=== PATIENT | female | born 1990 | race Caucasian/White ===

== ENCOUNTER 2017-07-30 02:20 | Emergency (ER) | payer MEDICAID, OTHER ==
[~2017-07-30] VITALS: Ht 160 cm; Wt 67.9 kg
[~2017-07-30 02:20] MED LIST: ACET500C5 PO
[2017-07-30 02:27] VITALS: Ht 160 cm; Wt 67.9 kg
[2017-07-30] MEDS ORDERED: AZIT250T94 PO (06:34)
[2017-07-30] MEDS ORDERED: CETI10CA PO (06:35)
[2017-07-30] MEDS ORDERED: ALBU8.5H3 INH (06:35)
--- NOTE | 2017-07-30 06:43 | ERD ---
ER Documentation Chief Complaint Chief Complaint cough x 2 weeks, sob today HPI This is a 27-year-old female who presents the emergency department today complaining of a cough for the past 2 weeks. Patient states she does smoke cigarettes. States that sometimes she feels some shortness of breath. Denies any currently. States that her cough is worse when she is at home around her mom's pets. Denies any fevers or chills. ROS All systems reviewed and are negative except as per history of present illness. Medications Home Meds Active Scripts Cetirizine Hcl* (Zyrtec*) 10 Mg Capsule, 10 MG PO DAILY, #14 TAB.CHEW Prov:FARNAZ VAUGHN PA-C 07/30/17 Albuterol Sulfate* (Proair HFA*) 8.5 Gm Hfa.aer.ad, 2 PUFF INH Q4, #1 INHALER Prov:FARNAZ VAUGHN PA-C 07/30/17 Azithromycin* (Zithromax*) 250 Mg Tablet, 250 MG PO .ZPACK DIRECTED, #6 TAB TAKE 500 MG (2 TABS) THE FIRST DAY THEN 250 MG (1 TAB) DAYS 2-5 Prov:FARNAZ VAUGHN PA-C 07/30/17 Acetaminophen* (Tylophen*) 500 Mg Capsule, 1 CAP PO Q6H Y for PAIN AND OR ELEVATED TEMP, #20 CAP Prov:BINDU AVENDANO CORPORATE COUNSELOR 05/28/16 Allergies Allergies: Coded Allergies: No Known Allergy (Unverified , 05/28/16) PMhx/Soc History of Surgery: No Anesthesia Reaction: No Hx Neurological Disorder: No Hx Respiratory Disorders: No Hx Cardiac Disorders: No Hx Psychiatric Problems: No Hx Miscellaneous Medical Probl: No Hx Alcohol Use: No Hx Substance Use: No Hx Tobacco Use: No Smoking Status: Never smoker Physical Exam Vitals Vital Signs Date Time Temp Pulse Resp B/P Pulse Ox O2 Delivery O2 Flow Rate FiO2 07/30/17 02:27 97.8 101 20 142/63 98 Physical Exam Const: NAD Head: Atraumatic Eyes: Normal Conjunctiva ENT: Normal External Ears, Nose and Mouth. Neck: Full range of motion..~ No meningismus. Resp: Clear to auscultation bilaterally Cardio: Regular rate and rhythm, no murmurs Abd: Soft, non tender, non distended. Normal bowel sounds Skin: No petechiae or rashes Neur: Awake and alert Psych: Normal Mood and Affect Procedures/MDM This is a 27-year-old female presents emergency department today complaining of cough for the past 2 weeks. Patient indicated that sometimes she has some shortness of breath. She also indicated that the cough is worse when she is at home and her mom's pets. States she does smoke cigarettes. Patient is afebrile and otherwise well-appearing. Her oxygen saturation 98%. Do not feel the patient requires a chest x-ray. I did offer to give the patient a breathing treatment however she has declined at this time. I will give the patient a prescription for azithromycin given the duration of her symptoms and the fact that she smokes cigarettes. Patient was counseled for greater than 3 minutes on smoking cessation. Also give her a prescription for ProAir inhaler and Zyrtec to help with allergies. Low suspicion for pneumonia, PE, abscess, pleural effusion, pneumothorax. Symptoms at this time is consistent with cough likely URI versus bronchitis. At this time the patient is stable for discharge and outpatient management. Patient should follow up with their PCP in the next 1-2 days. They may return to the emergency department sooner for any persistent or worsening of symptoms. Patient understood and agreed with the plan. Departure Diagnosis: Primary Impression: Cough Condition: Fair Patient Instructions: Preventing Common Respiratory Infections Referrals: [facility] YOU HAVE RECEIVED A MEDICAL SCREENING EXAM AND THE RESULTS INDICATE THAT YOU DO NOT HAVE A CONDITION THAT REQUIRES URGENT TREATMENT IN THE EMERGENCY DEPARTMENT. FURTHER EVALUATION AND TREATMENT OF YOUR CONDITION CAN WAIT UNTIL YOU ARE SEEN IN YOUR DOCTORS OFFICE WITHIN THE NEXT 1-2 DAYS. IT IS YOUR RESPONSIBILITY TO MAKE AN APPOINTMENT FOR FOLOW-UP CARE. IF YOU HAVE A PRIMARY DOCTOR --you should call your primary doctor and schedule an appointment IF YOU DO NOT HAVE A PRIMARY DOCTOR YOU CAN CALL OUR PHYSICIAN REFERRAL HOTLINE AT IF YOU CAN NOT AFFORD TO SEE A PHYSICIAN YOU CAN CHOSE FROM THE FOLLOWING [facility] [id number] [facility] [address] [facility] [address] [facility] [address] [facility]. [facility] [address] [facility]. [facility] [address] Additional Instructions: Call your primary care doctor TOMORROW for an appointment during the next 1-2 days.See the doctor sooner or return here if your condition worsens before your appointment time. take antibiotics as prescribed. Use inhaler as needed for cough. Take Zyrtec as prescribed FARNAZ VAUGHN PA-C Jul 30, 2017 06:43
== END 2017-07-30 07:03 | disposition home or self-care (01) ==
LOC: FTE 02:20
DX: R05 Cough (principal)
CPT/HCPCS: 99284

== ENCOUNTER 2017-09-26 21:32 | Emergency (ER) | END 2017-09-27 03:40 | disposition left against medical advice (07) ==

== ENCOUNTER 2018-05-20 03:46 | Emergency (ER) | END 2018-05-20 06:42 | disposition home or self-care (01) ==